=== PATIENT | female | born 1955 | race Caucasian/White ===

== ENCOUNTER 2016-04-17 15:58 | Emergency (ER) | payer BC ==
[2016-04-17] MEDS ORDERED: NORMAL SALINE 1,000 ML IV ONE (16:42)
[2016-04-17] MEDS ORDERED: ONDANSETRON HCL/PF 2 MG/ML VIAL IV ONE (16:42)
[2016-04-17] MEDS ORDERED: ONDANSETRON HCL/PF 2 MG/ML VIAL ONE (16:42)
[2016-04-17 16:59] LABS: Hematocrit 42.2 % (37.0-47.0); Hemoglobin 14.3 gm/dL (12.5-16.0); Mean Cell Volume 84.6 fl (78-100); Mean Corpuscular Hemoglobin 28.7 pg (27-31); Mean Corpuscular Hgb Conc 33.9 g/dl (32-36); Mean Platelet Volume 9.1 fl (6.0-9.5); Platelet Count 163 K/mm3 (150-450); Red Blood Count 4.99 M/mm3 (4.2-5.4); Red Cell Distribution Width 12.5 % (11.5-14.0); White Blood Count 5.7 K/mm3 (4.0-10.5)
[2016-04-17 17:14] LABS: Total Cells Counted 100
[2016-04-17 17:19] LABS: Albumin * 3.8 gm/dl (3.4-5.0); Anion Gap 14.2 mmol/L (6.8-13.8); BUN/Creatinine Ratio 14.8 (9.0-21.6); Bilirubin, Total 0.4 mg/dL (0.0-1.1); Ca. Corrected For Albumin 8.7 mg/dL (8.4-10.2); Calcium * 8.9 mg/dL (7.9-10.9); Carbon Dioxide 26.7 mmol/L (24-32.6); Potassium 2.9 mmol/L (3.4-4.6); Total Protein 7.7 gm/dL (6.2-8.2)
[2016-04-17 17:30] LABS: Urine Bilirubin Negative (NEGATIVE); Urine Ketone Negative (NEGATIVE); Urine Nitrite Negative (NEGATIVE); Urine Protein 15 mg/dL (NEGATIVE); Urine Urobilinogen Normal (NORMAL)
[2016-04-17 17:30] LABS: Atypical (Reactive) Lymph 3 % (0-2); Band 1 % (0-2.0); Lymphocyte 30 % (20-51); Monocyte 15 % (0-9); Neutrophil 51 % (42-75); Neutrophil # 2.9 K/mm3 (1.3-6.0)
[2016-04-17 17:37] LABS: Urine Appearance Clear; Urine Bacteria TRACE; Urine Blood 10 /ul (NEGATIVE); Urine Color Yellow; Urine RBC 0-5 /hpf (0-5); Urine WBC None Seen /hpf (0-5)
--- NOTE | 2016-04-17 17:42 | ERNOTE ---
Medical Problem HPI - Narrative Date of Service: 04/17/16 - General Chief Complaint: Nausea/Vomiting Time Seen by Provider: 04/17/16 16:32 Source: patient, family, RN notes reviewed Exam Limitations: no limitations - Immun/Allergies/Home Medications Immunizations: IMMUNIZATION HX Immunizations Up to Date Yes Allergies/Adverse Reactions: Allergies No Known Allergies Allergy (Unverified 04/17/16 16:14) Home Medications: HOME MEDICATIONS Unobtainable 04/17/16 [Last Taken Unknown] - History of Present History Narrative: Izabella is a 61 year old female brought to the ED by her daughter for nausea, vomiting and fever as high as 102 for a week and a half. She has also had some diarrhea, but not for a few days. She was feeling better for the past 2 days, but then began vomiting again this morning. She has tolerated liquids throughout the day since. She has not had a fever today. She complains of feeling very weak and unsteady. She has not been taking anything for her symptoms. Review of Systems - Review of Systems Constitutional: Present: fever, chills, fatigue, malaise EYE: Present: no symptoms reported ENT: Present: no symptoms reported Respiratory: Present: cough. Absent: shortness of breath, wheezing Cardiology: Absent: palpitations, syncope Gastrointestinal/Abdominal: Present: See HPI Genitourinary: Absent: frequency, dysuria Musculoskeletal: Present: no symptoms reported Skin: Present: no symptoms reported Neurological: Present: dizziness/light-headedness. Absent: headache, numbness, tingling Endocrine: Present: no symptoms reported Hematologic/Lymphatic: Present: no symptoms reported Psych: Present: no symptoms reported - Patient's Past Medical History Patient History - Medical: No pertinent hx Patient History - Cardiac/Respiratory: Hypertension Patient History - Cancer: No Hx of Cancer Patient History - Surgical Procedures: Hysterectomy LMP (females 10-50): Menopausal - Social History Living Situations: home Smoking Status: Never smoker Have you smoked in the past 12 months: No Alcohol Use: none Drug Use: none - Immunizations Immunizations Up to Date: Yes History of Influenza Vaccine: No Physical Exam - Physical Exam General Appearance: Present: wd/wn, alert, mild distress Ears, Nose, Throat: Present: normal ENT inspection, hearing grossly normal, normal pharynx Neck: Present: normal inspection, nontender, supple Respiratory: Present: no respiratory distress, normal breath sounds, no accessory muscle use, lungs clear Cardiovascular/Chest: Present: regular rate, rhythm, no murmur, normal peripheral pulses Gastrointestinal/Abdominal: Present: normal bowel sounds, nondistended, soft, tenderness - mild diffuse tenderness with palpation Back Exam: Present: normal inspection, no CVA tenderness Extremity Exam: Present: normal inspection, no edema Neurological Exam: Present: alert, oriented, no motor/sensory deficits, other - flat affect, depressed appearing. Absent: normal mood/affect Skin Exam: Present: warm/dry, pallor ED Progress - Results and Orders Patient's Lab Results:: I have reviewed the patient's lab results. - Vital Signs Patient's Vital Signs:: I have reviewed the patient's vital signs. Vital Signs: Vital Signs 04/17/16 16:11 Temperature 37.1 C Pulse Rate 88 Respiratory 16 Rate Blood Pressure 118/78 O2 Sat by Pulse 96 Oximetry - EKG EKG: NSR EKG read: Reviewed by me - Progress/Reassessment Chief Complaint: Nausea/Vomiting Progress:: Improved Plan - Plan Plan: Patient reports feeling better after IV fluids and Zofran. Is tolerating liquids. Patient does not have a PCP, she was prescribed her BP medication by someone she saw for a physical. Dr. Price contacted regarding patient. She will see her tomorrow for a recheck. Patient was given order for outpatient BMP to be drawn tomorrow before her appointment. She was given K-Dur 60 mEq po prior to D/ C. Departure - Departure Clinical Impression: Hypokalemia, gastrointestinal losses Vomiting Qualifiers: Vomiting type: unspecified Vomiting Intractability: non-intractable Nausea presence: with nausea Qualified Code(s): R11.2 - Nausea with vomiting, unspecified Disposition: Home Follow Up Needed Condition: Stable Instructions: Hypokalemia, Form - Excuse from Work, School, or Physical Activity Additional Instructions: Do not take your blood pressure medication until you are told to restart it Have your blood drawn tomorrow at noon, then see Dr. Price at 1:00 Referrals: Makayla Price MD [Staff Physician] - 04/18/16 1:00 pm
[2016-04-17] MEDS ORDERED: POTASSIUM CHLORIDE 20 MEQ TABLET.SA PO ONE (19:00)
[2016-04-17] MEDS ORDERED: POTASSIUM CHLORIDE 20 MEQ TABLET.SA ONE (19:02)
[2016-04-17 20:40] VITALS: BP 124/79
== END 2016-04-17 19:10 | disposition home or self-care (01) ==
LOC: ER 15:58
DX: E87.6 Hypokalemia (principal); R11.2 Nausea with vomiting, unspecified